=== PATIENT | female | born 1970 | race Caucasian/White ===

== ENCOUNTER → 2016-08-07 | Outpatient (REF) | payer BC ==
[~2016-08-07] MED LIST: NORT25CA2 OR
[2016-08-07 17:15] LABS: MEAN CORPUSCULAR HEMOGLOBIN 30.2 pg (27.0-33.0); MEAN CORPUSCULAR HGB CONC 33.4 g/dl (32.0-36.5); MEAN CORPUSCULAR VOLUME 90.5 fl (80.0-96.0); RED CELL DISTRIBUTION WIDTH 12.2 % (11.5-14.5); WHITE BLOOD COUNT 5.5 K/mm3 (4.0-10.0)
[2016-08-07 17:26] LABS: ALBUMIN 3.8 GM/DL (3.2-5.2); ALBUMIN/GLOBULIN RATIO 1.09 (1.00-1.93); ALKALINE PHOSPHATASE 83 U/L (45-117); ALT/SGPT 31 U/L (12-78); ANION GAP 7 MEQ/L (8-16); AST/SGOT 13 U/L (15-37); BILIRUBIN,TOTAL 0.2 MG/DL (0.2-1.0); BLOOD UREA NITROGEN 14 MG/DL (7-18); CALCIUM LEVEL 8.7 MG/DL (8.5-10.1); CARBON DIOXIDE LEVEL 27 MEQ/L (21-32); CHLORIDE LEVEL 105 MEQ/L (98-107); CHOLESTEROL LEVEL 204 MG/DL (<200); CREATININE FOR GFR 0.74 MG/DL (0.55-1.02); FREE T4 1.07 NG/DL (0.76-1.46); GLOMERULAR FILTRATION RATE > 60.0 (>58); GLUCOSE, FASTING 80 MG/DL (70-105); POTASSIUM SERUM 4.5 MEQ/L (3.5-5.1); SODIUM LEVEL 139 MEQ/L (136-145); TOTAL PROTEIN 7.3 GM/DL (6.4-8.2); TRIGLYCERIDES LEVEL 156 MG/DL (<150)
== END ==
LOC: M SFHCLERA 14:23
PROVIDERS: ATTEND Family Medicine
DX: H35.89 Other specified retinal disorders (principal)

== ENCOUNTER → 2016-08-17 | Outpatient (CLI) | payer BC ==
--- NOTE | 2016-08-18 04:33 | REP ---
Clinical: Visual disturbances and hyperlipidemia. Technique: Choi scale and color Doppler evaluation using linear high frequency transducer Findings: Two-dimensional choi scale and color images demonstrate minimal soft plaque material in the distal common carotid arteries/bulbs with normal arterial lumen and laminar flow. Color Doppler interrogation demonstrates normal arterial wave patterns and velocities with no significant spectral broadening. Normal flow direction is appreciated in the bilateral vertebral arteries. RIGHT (cm/s) LEFT (cm/s) ICA peak systolic velocity 58.8 67.0 ICA diastolic velocity 28.1 35.7 ECA peak systolic velocity 64.2 74.0 CCA peak systolic velocity 76.6 87.6 ICA/CCA ratio 0.77 0.76 Impression: No hemodynamically significant areas of narrowing or stenosis appreciated. Based on set standards narrowing falls within the less than 50% range. Signed by Abram Salguero MD 08/18/2016 04:25 A
--- NOTE | 2016-08-18 08:54 | REP ---
MRI BRAIN WITHOUT AND WITH CONTRAST: HISTORY: Retinal lipid deposits. CONTRAST: ProHance 19 mL. There are no areas of abnormal signal intensity in the brain. There is no intraparenchymal hemorrhage, infarct, mass or midline shift. There is no abnormal enhancement. The ventricular system is normal in appearance. There is no extracerebral collection. The sinuses are clear. IMPRESSION: There is no intracranial lesion. Signed by Darrius Andersen MD 08/18/2016 08:59 A
== END ==
LOC: M RAD 15:48
PROVIDERS: ATTEND Family Medicine
DX: H35.89 Other specified retinal disorders (principal)
CPT/HCPCS: 70553; 93880; A9576

== ENCOUNTER → 2017-07-16 | Outpatient (REF) | payer OTHER | LOC: M SFHCLERA 18:56 | DX: J02.9 Acute pharyngitis, unspecified (principal) ==

== ENCOUNTER 2017-11-29 05:58 | Emergency (ER) | payer OTHER ==
[2017-11-29] MEDS: NS 1,000 ML IV (07:07)
[2017-11-29] MEDS: MORPHINE 4 MG/ML 1ML VIAL/SYRINGE (J2270) IV ×2 (07:08→08:09)
[2017-11-29] MEDS: ONDANSETRON 4MG/2ML VIAL (J2405) IV (07:08)
[2017-11-29 08:02] LABS: CONTROL LINE HCG INT CTR LINE PRESENT; HCG, SERUM QUALITATIVE NEGATIVE (NEGATIVE)
[2017-11-29 08:03] LABS: AMORPHOUS SEDIMENT RFX LARGE (NEGATIVE); KETONE, URINE AUTO RFX NEGATIVE (NEGATIVE); MUCUS, URINE RFX LARGE (NEGATIVE); RBC, URINE AUTO RFX 146 /HPF (0-3); SPECIFIC GRAVITY UR AUTO RFX 1.015 (1.002-1.035); SQUAM EPITHELIAL CELL UR AURFX 6 /HPF (0-6)
[2017-11-29 08:04] LABS: LEUKOCYTE ESTERASE UR AUTO RFX 3+ (NEGATIVE); NITRITE, URINE AUTO RFX POSITIVE (NEGATIVE); WBC, URINE AUTO RFX TNTC /HPF (0-3)
[2017-11-29] MEDS: PHENAZOPYRIDINE 100 MG TAB PO (08:11)
[2017-11-29 08:28] LABS: ANION GAP 7 MEQ/L (8-16); BLOOD UREA NITROGEN 11 MG/DL (7-18); CALCIUM LEVEL 8.3 MG/DL (8.5-10.1); CARBON DIOXIDE LEVEL 26 MEQ/L (21-32); CHLORIDE LEVEL 111 MEQ/L (98-107); CREATININE FOR GFR 0.75 MG/DL (0.55-1.30); GLOMERULAR FILTRATION RATE > 60.0 (>58); GLUCOSE, FASTING 109 MG/DL (70-100); POTASSIUM SERUM 3.6 MEQ/L (3.5-5.1); SODIUM LEVEL 144 MEQ/L (136-145)
[2017-11-29] MEDS: cefTRIAXone SOD 1 GM in D5W MINI-BAG PLUS 50 ML IV (08:49)
[2017-11-29 09:09] LABS: BASO % 0.3 % (0.0-1.0); EOS # 0.1 10^3/uL (0.0-0.50); EOS % 0.5 % (0.0-3.0); HEMATOCRIT 40.9 % (36.0-47.0); HEMOGLOBIN 13.5 g/dl (12.0-15.5); IMMATURE GRANULOCYTE % 0.5 % (0-3.0); LYMPH # 0.9 10^3/uL (1.5-4.5); LYMPH % 7.8 % (24.0-44.0); MEAN CORPUSCULAR HEMOGLOBIN 30.1 pg (27.0-33.0); MEAN CORPUSCULAR VOLUME 91.1 fl (80.0-96.0); MONO # 0.8 10^3/uL (0.0-0.8); MONO % 6.5 % (0.0-5.0); NEUTROPHILS % 84.4 % (36.0-66.0); PLATELET COUNT, AUTOMATED 214 10^3/uL (150-450); RED BLOOD COUNT 4.49 10^6/uL (4.00-5.40); RED CELL DISTRIBUTION WIDTH 13.2 % (11.5-14.5); WHITE BLOOD COUNT 11.9 10^3/uL (4.0-10.0)
[2017-11-29 10:18] LABS: CHLAMYDIA DNA AMPLIFICATION NEGATIVE (NEGATIVE); GC DNA AMPLIFICATION NEGATIVE (NEGATIVE)
== END 2017-11-29 10:58 | disposition home or self-care (01) ==
LOC: M ED 05:58
DX: N10 Acute pyelonephritis (principal); D64.9 Anemia, unspecified; R51 Headache; F17.200 Nicotine dependence, unspecified, uncomplicated; Z88.5 Allergy status to narcotic agent; Z79.899 Other long term (current) drug therapy
CPT/HCPCS: J2270

== ENCOUNTER 2018-03-15 18:13 | Emergency (ER) | payer MEDICAID, OTHER, SELFPAY ==
[2018-03-15 18:47] LABS: BASO % 0.5 % (0.0-1.0); EOS # 0.1 10^3/uL (0.0-0.50); EOS % 1.4 % (0.0-3.0); HEMATOCRIT 46.6 % (36.0-47.0); HEMOGLOBIN 15.2 g/dl (12.0-15.5); IMMATURE GRANULOCYTE % 0.3 % (0-3.0); LYMPH # 1.6 10^3/uL (1.5-4.5); LYMPH % 21.2 % (24.0-44.0); MEAN CORPUSCULAR HEMOGLOBIN 30.3 pg (27.0-33.0); MEAN CORPUSCULAR HGB CONC 32.6 g/dl (32.0-36.5); MEAN CORPUSCULAR VOLUME 92.8 fl (80.0-96.0); MONO # 0.6 10^3/uL (0.0-0.8); MONO % 8.2 % (0.0-5.0); NEUTROPHILS % 68.4 % (36.0-66.0); PLATELET COUNT, AUTOMATED 196 10^3/uL (150-450); RED BLOOD COUNT 5.02 10^6/uL (4.00-5.40); RED CELL DISTRIBUTION WIDTH 12.5 % (11.5-14.5); WHITE BLOOD COUNT 7.4 10^3/uL (4.0-10.0)
[2018-03-15 18:58] LABS: INR 0.98; PROTHROMBIN TIME 13.1 SECONDS (12.1-14.4)
[2018-03-15 19:17] LABS: ALBUMIN/GLOBULIN RATIO 1.18 (1.00-1.93); ALKALINE PHOSPHATASE 75 U/L (45-117); ALT/SGPT 29 U/L (12-78); ANION GAP 10 MEQ/L (8-16); AST/SGOT 11 U/L (7-37); BILIRUBIN,DIRECT 0.1 MG/DL (0.0-0.2); BILIRUBIN,TOTAL 0.5 MG/DL (0.2-1.0); BLOOD UREA NITROGEN 11 MG/DL (7-18); CALCIUM LEVEL 8.8 MG/DL (8.5-10.1); CARBON DIOXIDE LEVEL 26 MEQ/L (21-32); CHLORIDE LEVEL 106 MEQ/L (98-107); CK-MB VALUE MASS < 1.0 NG/ML (<3.6); CPK CREATINE PHOSPHOKINASE 45 U/L (26-192); CREATININE FOR GFR 0.88 MG/DL (0.55-1.30); GLOMERULAR FILTRATION RATE > 60.0 (>58); GLUCOSE, FASTING 89 MG/DL (70-100); LIPASE 121 U/L (73-393); MB/CK RELATIVE INDEX 2.22 (< OR =4); SODIUM LEVEL 142 MEQ/L (136-145); TOTAL PROTEIN 7.4 GM/DL (6.4-8.2); TROPONIN I < 0.02 NG/ML (< 0.10)
[2018-03-15 19:55] LABS: MAGNESIUM LEVEL 2.3 MG/DL (1.8-2.4)
[2018-03-15] MEDS: ONDANSETRON 4 MG ORAL DISINTEGRATING TAB (Q0162 PER 1MG) PO (20:22)
[2018-03-15] MEDS ORDERED: ISOVUE-370 76% 100ML VIAL (Q9967) As Ordered (22:08)
[2018-03-15 22:50] LABS: CK-MB VALUE MASS < 1.0 NG/ML (<3.6); CPK CREATINE PHOSPHOKINASE 37 U/L (26-192); TROPONIN I < 0.02 NG/ML (< 0.10)
== END 2018-03-16 02:09 | disposition home or self-care (01) ==
LOC: M ED 03-16 02:09
DX: I49.3 Ventricular premature depolarization (principal); Z73.3 Stress, not elsewhere classified; F33.9 Major depressive disorder, recurrent, unspecified; F41.9 Anxiety disorder, unspecified; Z88.8 Allergy status to other drugs, medicaments and biological substances
CPT/HCPCS: Q9967

== ENCOUNTER → 2018-03-15 | Outpatient (REF) | payer OTHER ==
[2018-03-15 21:57] LABS: CHLAMYDIA DNA AMPLIFICATION NEGATIVE (NEGATIVE); GC DNA AMPLIFICATION NEGATIVE (NEGATIVE)
== END ==
LOC: M SFHCLERA 16:28
DX: R30.0 Dysuria (principal)
CPT/HCPCS: 87086

== ENCOUNTER 2018-11-20 17:59 | Emergency (ER) | payer MEDICAID, OTHER ==
[~2018-11-20] VITALS: Ht 165.1 cm; Wt 82.1 kg
[~2018-11-20 17:59] MED LIST changes: +CIPR-249 PO; +PERC5TAB12 PO; +PYRI1TAB5 PO
[2018-11-20] MEDS ORDERED: SERT-155 PO (18:11)
[2018-11-20] MEDS ORDERED: VALA500T5 PO (18:11)
[2018-11-20 18:37] LABS: BASO # 0.1 10^3/uL (0.0-0.2); BASO % 0.9 % (0.0-1.0); EOS # 0.1 10^3/uL (0.0-0.50); HEMATOCRIT 43.2 % (36.0-47.0); HEMOGLOBIN 13.9 g/dl (12.0-15.5); LYMPH # 1.7 10^3/uL (1.5-4.5); LYMPH % 25.3 % (24.0-44.0); MEAN CORPUSCULAR HEMOGLOBIN 30.4 pg (27.0-33.0); MEAN CORPUSCULAR HGB CONC 32.2 g/dl (32.0-36.5); MEAN CORPUSCULAR VOLUME 94.5 fl (80.0-96.0); MONO # 0.6 10^3/uL (0.0-0.8); MONO % 9.2 % (0.0-5.0); NEUTROPHILS # 4.1 10^3/uL (1.8-7.7); NEUTROPHILS % 62.3 % (36.0-66.0); PLATELET COUNT, AUTOMATED 185 10^3/uL (150-450); RED BLOOD COUNT 4.57 10^6/uL (4.00-5.40); WHITE BLOOD COUNT 6.5 10^3/uL (4.0-10.0)
[2018-11-20 19:17] LABS: BLOOD UREA NITROGEN 16 MG/DL (7-18); CALCIUM LEVEL 9.1 MG/DL (8.5-10.1); CARBON DIOXIDE LEVEL 30 MEQ/L (21-32); CHLORIDE LEVEL 107 MEQ/L (98-107); CK-MB VALUE MASS < 1.0 NG/ML (<3.6); CPK CREATINE PHOSPHOKINASE 87 U/L (26-192); CREATININE FOR GFR 0.88 MG/DL (0.55-1.30); GLOMERULAR FILTRATION RATE > 60.0 (>58); GLUCOSE, FASTING 90 MG/DL (70-100); MB/CK RELATIVE INDEX 1.15 (< OR =4); POTASSIUM SERUM 4.2 MEQ/L (3.5-5.1); SODIUM LEVEL 142 MEQ/L (136-145); TROPONIN I < 0.02 NG/ML (< 0.10)
--- NOTE | 2018-11-20 19:43 | REP ---
REASON: Chest pain. COMPARISON: 03/15/2018 The technique utilized in obtaining the radiograph has magnified the cardiac silhouette and accentuated the interstitial markings. The superior mediastinal structures are midline. The cardiac silhouette is unremarkable in size, shape, and position. The diaphragmatic surfaces of the lungs are regular, and the costophrenic angles are clear. The pulmonary golden are clear. The imaged osseous structures are intact. IMPRESSION: There is no acute cardiopulmonary disease. Electronically Signed by Simon Fontenot DO 11/21/2018 11:08 A
[2018-11-20] MEDS ORDERED: MORPHINE 4 MG/ML 1ML VIAL/SYRINGE (J2270) IV ONE (19:45)
[2018-11-20 20:42] LABS: ALBUMIN 3.9 GM/DL (3.2-5.2); ALT/SGPT 26 U/L (12-78); BILIRUBIN,DIRECT < 0.1 MG/DL (0.0-0.2); BILIRUBIN,TOTAL 0.1 MG/DL (0.2-1.0); LIPASE 115 U/L (73-393); MAGNESIUM LEVEL 2.1 MG/DL (1.8-2.4); PHOSPHORUS LEVEL 3.7 MG/DL (2.5-4.9); TOTAL PROTEIN 7.3 GM/DL (6.4-8.2)
--- NOTE | 2018-11-20 21:23 | REPVR ---
EXAM: US Abdomen Limited, Right Upper Quadrant EXAM DATE/TIME: 11/20/2018 8:58 PM CLINICAL HISTORY: 48 years old, female; Abdominal pain; Epigastric; Additional info: Ruq pain eval for cholecystitis TECHNIQUE: Imaging protocol: Real-time ultrasound of the abdomen with image documentation. Examination was focused on the right upper quadrant. COMPARISON: RENAL US 11/29/2017 8:56 AM FINDINGS: Liver: Unremarkable as visualized. No masses identified. Gallbladder: There are multiple stones within the gallbladder. No gallbladder wall thickening or pericholecystic fluid is identified. Common bile duct: The common bile duct has a normal caliber, measuring 3.1 mm. Pancreas: The pancreas is not adequately visualized secondary to motion and bowel gas. Right kidney: Normal size, measuring 11.5 cm in length. No mass. No hydronephrosis. IMPRESSION: Cholelithiasis. Electronically signed by: Magdaleno Cevallos On 11/20/2018 21:22:41 PM
--- NOTE | 2018-11-20 21:51 | ECGEPIP ---
[facility] - ED Test Date: 2018-11-20 Pat Name: COLT BARRAGAN Department: Room: - Gender: Female Wrapper Counter: SARAH : 1970 Requested By: Fernando Lang Order Number: [id number] Reading MD: Fernando Lewis Measurements Intervals [place] Rate: 80 P: 230 SD: 150 QRS: 55 QRSD: 80 T: 22 QT: 386 QTc: 448 Interpretive Statements ECTOPIC ATRIAL RHYTHM RHYTHM CHANGE COMPARED TO 03/15/18 Electronically Signed on 11-20-2018 21:51:27 EDT by Fernando Lewis
[2018-11-20 22:02] VITALS: BP 136/69
[2018-11-20] MEDS ORDERED: PERC5TAB12 PO (22:14)
[2018-11-20] MEDS ORDERED: OXYCODONE/APAP 5MG/325MG(BULK FOR ED) 1 TABLET PO ONE (22:15)
[2018-11-20] MEDS ORDERED: ZOFR4TAB16 PO (22:15)
[2018-12-02] MEDS ORDERED: SUCR1TAB56 PO (09:55)
[2018-12-02] MEDS ORDERED: RANI300C PO (09:55)
== END 2018-11-20 22:32 | disposition home or self-care (01) ==
LOC: M ED 17:59
DX: K80.70 Calculus of gallbladder and bile duct without cholecystitis without obstruction (principal); R00.2 Palpitations; R11.0 Nausea; F32.9 Major depressive disorder, single episode, unspecified; F17.200 Nicotine dependence, unspecified, uncomplicated; Z88.5 Allergy status to narcotic agent; Z79.899 Other long term (current) drug therapy
CPT/HCPCS: 36415; 71045; 76705; 80048; 80076; 82550; 82553; 83690; 83735; 84100; 84439; 84443; 85025; 93005; 93041; 94760; 96374; 99285; J2270

== ENCOUNTER → 2018-11-25 | Outpatient (REF) | payer OTHER ==
[~2018-11-25] MED LIST changes: +RANI300C PO; +SERT-155 PO; +SUCR1TAB56 PO; +VALA500T5 PO; +ZOFR4TAB16 PO
[2018-11-25 20:25] LABS: CHOLESTEROL RISK RATIO 2.648 (<5)
[2018-11-25 20:42] LABS: HEMOGLOBIN A1c 5.7 %
== END ==
LOC: M SFHCLERA 17:05
PROVIDERS: ATTEND Family Medicine
DX: E66.9 Obesity, unspecified (principal); Z68.30 Body mass index [BMI] 30.0-30.9, adult

== ENCOUNTER 2018-12-05 11:22 | Day surgery (SDC) | payer OTHER ==
[~2018-12-05] VITALS: Ht 165.1 cm; Wt 79.7 kg
[~2018-12-05 11:22] MED LIST changes: +NS 1,000 ML IV ONE
[2018-12-05] MEDS ORDERED: fentaNYL 100 MCG/2 ML INJECTION (J3010) As Ordered ONE (13:30)
[2018-12-05] MEDS ORDERED: PROPOFOL 200 MG/20 ML VIAL As Ordered ONE ×2 (13:47→13:48)
[2018-12-05] MEDS ORDERED: LIDOCAINE 2% INJ 100 MG/5 ML SDV (FOR ANES.) As Ordered ONE (13:48)
--- NOTE | 2018-12-05 13:58 | ROOR ---
Patient Name: Aleena Aguillon Procedure Date: 12/05/2018 1:32 PM Date of : 1970 Age: 48 Room: [facility] Gender: Female Note Status: Finalized Procedure: Upper GI endoscopy Indications: Suspected esophageal reflux Providers: Cleveland Inman Jr, MD Referring MD: Kody BOND MD Requesting Provider: Medicines: Propofol per Anesthesia Complications: No immediate complications. Procedure: Pre-Anesthesia Assessment: - Prior to the procedure, a History and Physical was performed, and patient medications and allergies were reviewed. The patient is competent. The risks and benefits of the procedure and the sedation options and risks were discussed with the patient. All questions were answered and informed consent was obtained. Patient identification and proposed procedure were verified by the physician and the nurse in the pre-procedure area and in the procedure room. Mental Status Examination: alert and oriented. Airway Examination: normal oropharyngeal airway and neck mobility. Respiratory Examination: clear to auscultation. CV Examination: normal. ASA Grade Assessment: II - A patient with mild systemic disease. After reviewing the risks and benefits, the patient was deemed in satisfactory condition to undergo the procedure. The anesthesia plan was to use moderate sedation / analgesia (conscious sedation). Immediately prior to administration of medications, the patient was re-assessed for adequacy to receive sedatives. The heart rate, respiratory rate, oxygen saturations, blood pressure, adequacy of pulmonary ventilation, and response to care were monitored throughout the procedure. The physical status of the patient was re-assessed after the procedure. The Endoscope was introduced through the mouth, and advanced to the second part of duodenum. The upper GI endoscopy was accomplished without difficulty. The patient tolerated the procedure well. Findings: The upper third of the esophagus, middle third of the esophagus and lower third of the esophagus were normal. The cardia, gastric fundus, gastric body, gastric antrum, prepyloric region of the stomach and pylorus were normal. The duodenal bulb, first portion of the duodenum and second portion of the duodenum were normal. Impression: - Normal upper third of esophagus, middle third of esophagus and lower third of esophagus. - Normal cardia, gastric fundus, gastric body, antrum, prepyloric region of the stomach and pylorus. - Normal duodenal bulb, first portion of the duodenum and second portion of the duodenum. - No specimens collected. Recommendation: - Discharge patient to home (ambulatory). - Return to my office as previously scheduled. Cleveland Inman MD Cleveland Inman Jr, MD 12/05/2018 1:58:27 PM Electronically signed by Cleveland Inman Jr, MD Number of Addenda: 0 Note Initiated On: 12/05/2018 1:32 PM Estimated Blood Loss: Estimated blood loss: none.
--- NOTE | 2018-12-05 14:00 | ROOR ---
Patient Name: Aleena Aguillon Procedure Date: 12/05/2018 1:34 PM Date of : 1970 Age: 48 Room: [facility] Gender: Female Note Status: Finalized Procedure: Colonoscopy Indications: Screening in patient at increased risk: Family history of 1st-degree relative with colorectal cancer Providers: Cleveland Inman Jr, MD Referring MD: Kody BOND MD Requesting Provider: Medicines: Propofol per Anesthesia Complications: No immediate complications. Procedure: Pre-Anesthesia Assessment: - Prior to the procedure, a History and Physical was performed, and patient medications and allergies were reviewed. The patient is competent. The risks and benefits of the procedure and the sedation options and risks were discussed with the patient. All questions were answered and informed consent was obtained. Patient identification and proposed procedure were verified by the physician and the nurse in the pre-procedure area and in the procedure room. Mental Status Examination: alert and oriented. Airway Examination: normal oropharyngeal airway and neck mobility. Respiratory Examination: clear to auscultation. CV Examination: normal. ASA Grade Assessment: II - A patient with mild systemic disease. After reviewing the risks and benefits, the patient was deemed in satisfactory condition to undergo the procedure. The anesthesia plan was to use moderate sedation / analgesia (conscious sedation). Immediately prior to administration of medications, the patient was re-assessed for adequacy to receive sedatives. The heart rate, respiratory rate, oxygen saturations, blood pressure, adequacy of pulmonary ventilation, and response to care were monitored throughout the procedure. The physical status of the patient was re-assessed after the procedure. The Colonoscope was introduced through the anus and advanced to the cecum, identified by appendiceal orifice and ileocecal valve. The colonoscopy was performed without difficulty. The patient tolerated the procedure well. The quality of the bowel preparation was adequate. Findings: The rectum, recto-sigmoid colon, sigmoid colon, descending colon, transverse colon, ascending colon, cecum, appendiceal orifice and ileocecal valve appeared normal. Impression: - The rectum, recto-sigmoid colon, sigmoid colon, descending colon, transverse colon, ascending colon, cecum, appendiceal orifice and ileocecal valve are normal. - No specimens collected. Recommendation: - Discharge patient to home (ambulatory). - Repeat colonoscopy in 5 years for screening purposes. Cleveland Inman MD Cleveland Inman Jr, MD 12/05/2018 1:59:54 PM Electronically signed by Cleveland Inman Jr, MD Number of Addenda: 0 Note Initiated On: 12/05/2018 1:34 PM Estimated Blood Loss: Estimated blood loss: none.
[2018-12-05 14:36] VITALS: BP 126/83
== END 2018-12-05 14:38 | disposition home or self-care (01) ==
LOC: M OPP 11:22
PROVIDERS: ATTEND Surgery
DX: Z12.11 Encounter for screening for malignant neoplasm of colon (principal); Z80.0 Family history of malignant neoplasm of digestive organs; K21.9 Gastro-esophageal reflux disease without esophagitis; Z79.899 Other long term (current) drug therapy; Z88.5 Allergy status to narcotic agent; Z87.891 Personal history of nicotine dependence
CPT/HCPCS: 43235; 45378; J3010

== ENCOUNTER 2019-01-04 18:54 | Emergency (ER) | payer OTHER ==
[~2019-01-04] VITALS: Ht 165.1 cm; Wt 80.9 kg
[~2019-01-04 18:54] MED LIST changes: -NS 1,000 ML IV ONE
[2019-01-04 19:30] LABS: HEMOGLOBIN 13.3 g/dl (12.0-15.5); MEAN CORPUSCULAR VOLUME 92.6 fl (80.0-96.0); RED BLOOD COUNT 4.43 10^6/uL (4.00-5.40); WHITE BLOOD COUNT 10.3 10^3/uL (4.0-10.0)
[2019-01-04 19:31] LABS: BASO % 0.4 % (0.0-1.0); EOS # 0.1 10^3/uL (0.0-0.5); EOS % 0.7 % (0.0-3.0); LYMPH # 1.5 10^3/uL (1.5-5.0); LYMPH % 14.1 % (24.0-44.0); MEAN CORPUSCULAR HGB CONC 32.4 g/dl (32.0-36.5); MONO % 9.4 % (0.0-5.0); NEUTROPHILS # 7.8 10^3/uL (1.5-8.5); NEUTROPHILS % 75.1 % (36.0-66.0); PLATELET COUNT, AUTOMATED 165 10^3/uL (150-450)
--- NOTE | 2019-01-04 19:44 | REPVR ---
PROCEDURE INFORMATION: Exam: US Pelvis Limited, Transabdominal Exam date and time: 01/04/2019 7:39 PM Clinical history: 48 years old, female; Pain; Other: RT glute; Additional info: Right gluteal cellulitis vs abscess TECHNIQUE: Imaging protocol: Real-time transabdominal pelvic ultrasound with image documentation. Limited exam. COMPARISON: CT ABD PELVIS W/O CONTRAST 05/19/2015 3:37 PM FINDINGS: Free fluid: Imaging in the right gluteal region demonstrates marked subcutaneous edema. There is a complex partially fluid filled mass measuring 1 x 0.8 x 1 cm without significant hypervascularity which may represent fat necrosis or an abscess. IMPRESSION: There is a complex partially fluid filled mass in the right gluteal region in the area of clinical concern without significant hypervascularity which may represent fat necrosis or an abscess. Electronically signed by: Shahzad Mancuso On 01/04/2019 19:43:58 PM
[2019-01-04] MEDS ORDERED: LIDOCAINE 1% MDV 20ML VIAL SC ONE (20:00)
[2019-01-04] MEDS ORDERED: ACETAMINOPHEN 325 MG TAB PO ONE (20:15)
[2019-01-04] MEDS ORDERED: BACTRIM 160MG/800MG DS TAB PO ONE (20:15)
[2019-01-04] MEDS ORDERED: BACT800T5 PO (20:17)
[2019-01-04 20:28] VITALS: BP 164/99
== END 2019-01-04 20:36 | disposition home or self-care (01) ==
LOC: M ED 18:54
DX: L03.317 Cellulitis of buttock (principal); Z79.899 Other long term (current) drug therapy; Z88.8 Allergy status to other drugs, medicaments and biological substances

== ENCOUNTER 2019-01-06 19:55 | Emergency (ER) | payer OTHER ==
[~2019-01-06] VITALS: Ht 165.1 cm; Wt 79.5 kg
[~2019-01-06 19:55] MED LIST changes: +BACT800T5 PO
[2019-01-06 19:58] VITALS: BP 137/84
[2019-01-07] MEDS ORDERED: NON-325T5 PO (06:28)
== END 2019-01-06 20:15 | disposition left against medical advice (07) ==
LOC: M ED 19:55
DX: Z53.29 Procedure and treatment not carried out because of patient's decision for other reasons (principal)

== ENCOUNTER 2019-01-07 05:59 | Day surgery (SDC) | payer OTHER ==
[~2019-01-07] VITALS: Ht 165.1 cm; Wt 79.8 kg
[2019-01-07] MEDS ORDERED: LIDOCAINE 1% MDV 20ML VIAL SQ PRN (06:00)
[2019-01-07] MEDS ORDERED: NON-325T5 PO (06:28)
[2019-01-07] MEDS ORDERED: ceFAZolin SOD 1 GM in D5W MINI-BAG PLUS 50 ML IV ONE (06:30)
[2019-01-07] MEDS ORDERED: SUGAMMADEX SODIUM 500 MG/5 ML VIAL (BRIDION) As Ordered ONE (06:55)
[2019-01-07] MEDS ORDERED: PROPOFOL 200 MG/20 ML VIAL As Ordered ONE (06:55)
[2019-01-07] MEDS ORDERED: LIDOCAINE 2% INJ 100 MG/5 ML SDV (FOR ANES.) As Ordered ONE (06:55)
[2019-01-07] MEDS ORDERED: ROCURONIUM BROMIDE 50 MG/5 ML VIAL As Ordered ONE (06:55)
[2019-01-07] MEDS ORDERED: ACETAMINOPHEN 1000MG 100ML IV BTL (OFIRMEV) (J0131 PER 10MG) As Ordered ONE (06:56)
[2019-01-07] MEDS ORDERED: dexameTHASONE 4 MG/ML 1ML VIAL (J1100) As Ordered ONE (06:56)
[2019-01-07] MEDS ORDERED: fentaNYL 250 MCG/5 ML INJECTION (J3010) As Ordered ONE (06:56)
[2019-01-07] MEDS ORDERED: MIDAZOLAM INJ 2 MG/2 ML VIAL (J2250) As Ordered ONE (06:56)
[2019-01-07] MEDS ORDERED: KETAMINE HCL 200 MG/20 ML VIAL As Ordered ONE (06:56)
[2019-01-07] MEDS ORDERED: KETOROLAC 60 MG/2 ML VIAL (J1885) As Ordered ONE (06:56)
[2019-01-07] MEDS ORDERED: ONDANSETRON 4MG/2ML VIAL (J2405) As Ordered ONE (06:56)
[2019-01-07] MEDS ORDERED: LR 1,000 ML IV ONE (07:00)
[2019-01-07] MEDS ORDERED: BUPIVACAINE/EPIN 0.25% 30 ML VIAL As Ordered ONE ×2 (07:08→07:47)
[2019-01-07] MEDS ORDERED: CONRAY-60 60% 50ML VIAL (Q9961) As Ordered ONE (07:08)
[2019-01-07] MEDS ORDERED: SUCCINYLCHOLINE 100 MG/5 ML SYRINGE (J0330) As Ordered ONE (07:51)
[2019-01-07] MEDS ORDERED: KETOROLAC 30 MG/ML VIAL (J1885) IV SCH (09:15)
[2019-01-07] MEDS: fentaNYL 100 MCG/2 ML INJECTION (J3010) IV PRN ×4 (09:15→09:32)
[2019-01-07] MEDS ORDERED: ONDANSETRON 4MG/2ML VIAL (J2405) IV PRN ×2 (10:00)
[2019-01-07] MEDS ORDERED: NORCO, ANEXSIA 5/325MG TABLET (HYDROcodone/ACETAMINOPHEN) PO PRN (10:00)
[2019-01-07] MEDS ORDERED: LR 1,000 ML IV SCH (10:00)
[2019-01-07] MEDS ORDERED: oxyCODONE 5MG TAB PO PRN (10:00)
[2019-01-07] MEDS ORDERED: MORPHINE 10 MG/ML 1ML VIAL (J2270) IV PRN (10:00)
[2019-01-07] MEDS ORDERED: METOCLOPRAMIDE INJ 10MG/2ML VIAL (J2765) As Ordered ONE (11:15)
[2019-01-07] MEDS ORDERED: METOCLOPRAMIDE INJ 10MG/2ML VIAL (J2765) IV ONE (11:30)
[2019-01-07 12:30] VITALS: BP 118/61
--- NOTE | 2019-01-10 10:59 | RO ---
DATE OF PROCEDURE: 01/07/2019 PREOPERATIVE DIAGNOSIS: Symptomatic gallstones. POSTOPERATIVE DIAGNOSIS: Symptomatic gallstones. PROCEDURE: Laparoscopic cholecystectomy. SURGEON: Cleveland Inman MD [employer] OFFICER: ANESTHESIA: General endotracheal anesthesia. ESTIMATED BLOOD LOSS (EBL): Minimal. FLUIDS: Crystalloid. BRIEF PROCEDURE SUMMARY: The patient was brought to the operating room, was given general anesthesia. After adequate anesthesia and preoperative antibiotics were given, the patient was prepped and draped in the usual sterile fashion. Next, a supraumbilical incision was made with skin knife. Blunt dissection was carried down to fascia. Fascia was entered using Veress needle, insufflated to 15 mm pressure, then dilating 10 mm trocar was placed under direct visualization. Epigastric and two lateral trocars were placed. The gallbladder was grasped, retracted superiorly. Then, the neck of the gallbladder was cleared of surrounding peritoneum using the hook cautery all across the anterior aspect of the gallbladder as well as the cystic artery area. Once mobilizing the peritoneum laterally, I was able to retract the gallbladder a little bit more laterally and then open up the space on the medial aspect to better visualize the artery as well as the window behind the neck of the gallbladder. This better showed the cystic duct area as well as the neck of the gallbladder and the cystic artery, and then further dissection up to the cystic plate was performed on the lateral aspect and once this was all nice and clear the cystic artery was clipped proximally and distally and transected. Then, the window was even enlarged a little bit larger and then the cystic artery was identified, clipped proximally and distally and transected. The gallbladder then was taken from the gallbladder bed, placed in an Endo Catch bag, brought out through the umbilicus. The right upper quadrant was copiously irrigated until clear. All the trocars were removed under direct visualization. #0 Vicryl was used close the fascia at the umbilicus and #4-0 Vicryl was used close all incisions. Steri-Strips and dry sterile dressing was applied. The patient was awakened, extubated, brought to recovery room awake, alert and hemodynamic stable. Sponge and needle counts correct times two.
== END 2019-01-07 12:38 | disposition home or self-care (01) ==
LOC: M SDC 05:59
PROVIDERS: ATTEND Surgery
DX: K80.10 Calculus of gallbladder with chronic cholecystitis without obstruction (principal); F41.9 Anxiety disorder, unspecified; F32.9 Major depressive disorder, single episode, unspecified; Z79.899 Other long term (current) drug therapy; Z88.8 Allergy status to other drugs, medicaments and biological substances
CPT/HCPCS: 47562; 88304; J0131; J0330; J0690; J1100; J2250; J2405; J2765; J3010

== ENCOUNTER → 2019-07-09 | Outpatient (REF) | payer BC ==
[~2019-07-09] MED LIST changes: +NON-325T5 PO; -SERT-155 PO; +SERT50TA29 PO
== END ==
LOC: M LAB REF 12:13
PROVIDERS: ATTEND Physician Assistant
DX: J11.1 Influenza due to unidentified influenza virus with other respiratory manifestations (principal)

== ENCOUNTER → 2019-08-09 | Outpatient (CLI) | payer BC ==
--- NOTE | 2019-08-09 12:43 | REP ---
RIGHT WRIST, FOUR VIEWS: There is no evidence of an acute fracture, dislocation or intrinsic bone disease. IMPRESSION: No fracture or dislocation. Electronically Signed by Kody Choi MD 08/09/2019 04:19 P
--- NOTE | 2019-08-09 12:43 | REP ---
CERVICAL SPINE SERIES: Seven views of the cervical spine performed. No fracture or dislocation is seen. Vertebral bodies are normal in height and are well aligned with normal cervical lordosis. There is no vertebral soft tissue swelling. There is mild spurring and disc space narrowing with mild subchondral sclerosis at C6-7. No radiographic evidence of significant neural foraminal narrowing. IMPRESSION: Mild degenerative changes C6-7. No radiographic evidence of fracture or dislocation. Electronically Signed by Kody Choi MD 08/09/2019 04:20 P
== END ==
LOC: M RAD 10:21
PROVIDERS: ATTEND Physician Assistant
DX: M50.323 Other cervical disc degeneration at C6-C7 level (principal); S69.91XA Unspecified injury of right wrist, hand and finger(s), initial encounter; W19.XXXA Unspecified fall, initial encounter; Y92.9 Unspecified place or not applicable

== ENCOUNTER → 2019-12-31 | Outpatient (CLI) | payer BC ==
--- NOTE | 2020-01-09 16:54 | REP ---
DIGITAL DIAGNOSTIC BILATERAL MAMMOGRAM WITH CAD, 3D TOMOGRAPHY, AND FOCUSED OR TARGETED BILATERAL BREAST SONOGRAPHY HISTORY: Bilateral palpable lumps, one on each side. COMPARISON: Mammography August 18, 2016, and June 04, 2015. FINDINGS: A skin marker was affixed to the skin of the right breast at the site of the palpable lump. This lump projects superiorly at approximately 12 oclock position. Routine views are augmented by magnified focal spot compression views. A skin marker was affixed to the site of the palpable lump in the left breast which projects in the superior medial quadrant anteriorly. Breast parenchyma is predominantly fat replaced. The Volpara volumetric breast parenchymal density pattern is A. No dominant density is seen mammographically at the site of either palpable lump or elsewhere on either side. There are normal appearing lymph nodes in each axilla. No architectural distortion, microcalcific grouping, or worrisome skin changes seen mammographically on either side. No mammographically suspicious finding. Sonographic findings: Focused targeted ultrasound was performed bilaterally. In the right breast at 12 oclock 5 to 6 cm from the nipple, there is a 2.0 x 2.0 x 0.9 cm very slightly hyperechoic lobule of fat containing a small cystic area immediately beneath the dermis. This has a benign appearance and may be a slightly inflamed fat nodule with a cyst. No other sonographically suspicious finding. In the left breast at the 11 oclock position superiorly and medially, there are isoechoic lobules of normal appearing subcutaneous fat and breast tissue. No sonographically suspicious feature. IMPRESSION: BI-RADS category 2, benign findings. Clinical follow up is advised. This mammogram was read with the aid of an FDA approved computer assisted detection system. Patient letter is letter M2. The patient states her last clinical breast exam is December 2019. The patient's [facility] lifetime breast cancer risk assessment is 10.8%. MTDD
== END ==
LOC: M WHC 07:58
PROVIDERS: ATTEND Nurse Practitioner Family
DX: Z12.31 Encounter for screening mammogram for malignant neoplasm of breast (principal); R92.8 Other abnormal and inconclusive findings on diagnostic imaging of breast

== ENCOUNTER → 2020-09-08 | Outpatient (CLI) | payer BC ==
[~2020-09-08] MED LIST changes: +ACET32TAB PO; -NON-325T5 PO
[2020-09-08 14:01] LABS: BASO # 0.1 10^3/uL (0.0-0.2); BASO % 1.2 % (0.0-1.0); EOS # 0.1 10^3/uL (0.0-0.5); EOS % 1.4 % (0.0-3.0); HEMATOCRIT 44.4 % (36.0-47.0); HEMOGLOBIN 14.2 g/dl (12.0-15.5); LYMPH # 1.4 10^3/uL (1.5-5.0); LYMPH % 27.2 % (24.0-44.0); MEAN CORPUSCULAR HEMOGLOBIN 29.3 pg (27.0-33.0); MEAN CORPUSCULAR VOLUME 91.5 fl (80.0-96.0); MONO # 0.5 10^3/uL (0.0-0.8); MONO % 9.5 % (2.0-8.0); NEUTROPHILS # 3.1 10^3/uL (1.5-8.5); NEUTROPHILS % 60.3 % (36.0-66.0); PLATELET COUNT, AUTOMATED 204 10^3/uL (150-450); RED BLOOD COUNT 4.85 10^6/uL (4.00-5.40); WHITE BLOOD COUNT 5.1 10^3/uL (4.0-10.0)
[2020-09-08 14:25] LABS: ALBUMIN 3.9 GM/DL (3.2-5.2); ALT/SGPT 32 U/L (12-78); BILIRUBIN,TOTAL 0.4 MG/DL (0.2-1.0); BLOOD UREA NITROGEN 11 MG/DL (7-18); CALCIUM LEVEL 9.1 MG/DL (8.5-10.1); CARBON DIOXIDE LEVEL 27 MEQ/L (21-32); CHLORIDE LEVEL 110 MEQ/L (98-107); CHOLESTEROL LEVEL 208 MG/DL (<200); CHOLESTEROL RISK RATIO 3.014 (<5); CREATININE FOR GFR 0.71 MG/DL (0.55-1.30); FREE T4 1.05 NG/DL (0.76-1.46); GLOMERULAR FILTRATION RATE > 60.0 (>58); GLUCOSE, FASTING 102 MG/DL (70-100); HDL CHOLESTEROL 69 MG/DL (>40); LDL CHOLESTEROL 118 MG/DL (<100); NON-HDL-C 139 MG/DL; POTASSIUM SERUM 4.2 MEQ/L (3.5-5.1); SODIUM LEVEL 142 MEQ/L (136-145); TOTAL PROTEIN 7.3 GM/DL (6.4-8.2); TRIGLYCERIDES LEVEL 106 MG/DL (<150)
[2020-09-08 14:28] LABS: MALB URINE SIEMENS 8.9 MG/L
[2020-09-08 14:44] LABS: HEMOGLOBIN A1c 5.4 %
== END ==
LOC: M WUC 11:27
PROVIDERS: ATTEND Nurse Practitioner Family
DX: Z00.00 Encounter for general adult medical examination without abnormal findings (principal); R63.2 Polyphagia; R03.0 Elevated blood-pressure reading, without diagnosis of hypertension

== ENCOUNTER → 2021-07-12 | Outpatient (CLI) | payer BC | LOC: M WHC 11:47 | PROVIDERS: ATTEND Nurse Practitioner Family | DX: Z12.31 Encounter for screening mammogram for malignant neoplasm of breast (principal) ==

== ENCOUNTER → 2021-12-05 | Outpatient (CLI) | payer BC | LOC: M SOG 08:23 | PROVIDERS: ATTEND Orthopaedic Surgery | DX: M54.2 Cervicalgia (principal); M54.50 Low back pain, unspecified; M25.78 Osteophyte, vertebrae ==

== ENCOUNTER 2022-04-24 14:42 | Emergency (ER) | payer BC ==
[~2022-04-24] VITALS: Ht 157.5 cm; Wt 91.8 kg
[2022-04-24 16:39] LABS: HEMATOCRIT 37.5 % (36.0-47.0); MEAN CORPUSCULAR HEMOGLOBIN 29.3 pg (27.0-33.0); MEAN CORPUSCULAR VOLUME 91.5 fl (80.0-96.0); PLATELET COUNT, AUTOMATED 194 10^3/uL (150-450); WHITE BLOOD COUNT 5.9 10^3/uL (4.0-10.0)
[2022-04-24 17:05] LABS: BLOOD UREA NITROGEN 18 MG/DL (9-23); CALCIUM LEVEL 9.1 MG/DL (8.5-10.1); CARBON DIOXIDE LEVEL 23 MMOL/L (20-31); CHLORIDE LEVEL 106 MMOL/L (98-107); CREATININE FOR GFR 0.71 MG/DL (0.55-1.30); GLOMERULAR FILTRATION RATE > 60.0 (>51); GLUCOSE, FASTING 137 MG/DL (60-100); POTASSIUM SERUM 4.4 MMOL/L (3.5-5.1); SODIUM LEVEL 140 MMOL/L (136-145)
[2022-04-24 17:12] LABS: THYROID STIMULATING HORMONE 0.946 uIU/ML (0.55-4.78)
[2022-04-24 17:15] VITALS: BP 121/77
[2022-04-24] MEDS ORDERED: CARVedilol 6.25 MG TAB PO ONE (17:20)
[2022-04-24] MEDS ORDERED: LISI10TA22 (17:21)
[2022-04-24] MEDS ORDERED: CORE6.25 PO (17:23)
[2022-04-24 17:33] VITALS: BP 116/72
== END 2022-04-24 17:37 | disposition home or self-care (01) ==
LOC: M ED 14:42
DX: I49.3 Ventricular premature depolarization (principal); I10 Essential (primary) hypertension; F41.9 Anxiety disorder, unspecified; F32.A Depression, unspecified; F10.10 Alcohol abuse, uncomplicated; Z87.891 Personal history of nicotine dependence; Z88.5 Allergy status to narcotic agent; Z79.52 Long term (current) use of systemic steroids; Z79.899 Other long term (current) drug therapy

== ENCOUNTER → 2022-05-18 | Outpatient (CLI) | payer BC ==
[~2022-05-18] MED LIST changes: +CORE6.25 PO; +LISI10TA22
[2022-05-18 21:34] LABS: HEMOGLOBIN A1c 5.2 % (4.0-6.0)
== END ==
LOC: M LAB 16:24
PROVIDERS: ATTEND Surgery
DX: Z86.39 Personal history of other endocrine, nutritional and metabolic disease (principal)

== ENCOUNTER → 2022-06-06 | Outpatient (REF) | payer BC | LOC: M LAB REF 15:11 | PROVIDERS: ATTEND Surgery | DX: K21.9 Gastro-esophageal reflux disease without esophagitis (principal) ==

== ENCOUNTER → 2022-07-25 | Outpatient (CLI) | payer BC ==
[2022-07-25 15:20] LABS: BASO % 0.7 % (0.0-1.0); EOS % 0.9 % (0.0-3.0); HEMATOCRIT 42.9 % (36.0-47.0); HEMOGLOBIN 13.7 g/dl (12.0-15.5); LYMPH # 1.2 10^3/uL (1.5-5.0); LYMPH % 27.6 % (24.0-44.0); MEAN CORPUSCULAR HEMOGLOBIN 28.8 pg (27.0-33.0); MEAN CORPUSCULAR HGB CONC 31.9 g/dl (32.0-36.5); MEAN CORPUSCULAR VOLUME 90.1 fl (80.0-96.0); MONO # 0.3 10^3/uL (0.0-0.8); MONO % 7.9 % (2.0-8.0); NEUTROPHILS # 2.7 10^3/uL (1.5-8.5); NEUTROPHILS % 62.7 % (36.0-66.0); PLATELET COUNT, AUTOMATED 148 10^3/uL (150-450); RED BLOOD COUNT 4.76 10^6/uL (4.00-5.40); WHITE BLOOD COUNT 4.3 10^3/uL (4.0-10.0)
[2022-07-25 15:49] LABS: ALKALINE PHOSPHATASE 71 U/L (46-116); ALT/SGPT 28 U/L (7.0-40); AST/SGOT 31 U/L (<34); BILIRUBIN,TOTAL 0.3 MG/DL (0.3-1.2); BLOOD UREA NITROGEN 12 MG/DL (9-23); CALCIUM LEVEL 8.9 MG/DL (8.5-10.1); CARBON DIOXIDE LEVEL 22 MMOL/L (20-31); CHLORIDE LEVEL 107 MMOL/L (98-107); CREATININE FOR GFR 0.63 MG/DL (0.55-1.30); GLOMERULAR FILTRATION RATE > 60.0 (>51); GLUCOSE, FASTING 82 MG/DL (60-100); IRON (FE) 41 UG/DL (50-170); MAGNESIUM LEVEL 1.7 MG/DL (1.8-2.4); PHOSPHORUS LEVEL 3.4 MG/DL (2.5-4.9); POTASSIUM SERUM 4.1 MMOL/L (3.5-5.1); SODIUM LEVEL 139 MMOL/L (136-145); TOTAL IRON BINDING CAPACITY 257 UG/DL (250-425); TOTAL PROTEIN 6.8 G/DL (5.7-8.2)
[2022-07-25 15:51] LABS: TOTAL 25(OH) VITAMIN D 38.8 NG/ML (20.0-100.0); VITAMIN B12 LEVEL 1577 PG/ML (211-911)
[2022-07-25 16:15] LABS: HEMOGLOBIN A1c 5.3 % (4.0-6.0)
== END ==
LOC: M LAB 14:00
PROVIDERS: ATTEND Surgery
DX: K91.2 Postsurgical malabsorption, not elsewhere classified (principal); E55.9 Vitamin D deficiency, unspecified; Z98.84 Bariatric surgery status

== ENCOUNTER → 2022-08-28 | Outpatient (CLI) | payer BC ==
[2022-08-28 16:35] LABS: HEPATITIS B SURFACE ANTIGEN NEGATIVE (NEGATIVE)
[2022-08-28 16:47] LABS: HIV 1&2 SCREEN NEGATIVE (NEGATIVE)
[2022-08-28 16:55] LABS: HEPATITIS B CORE ANTIBODY IGM NEGATIVE (NEGATIVE)
[2022-08-28 19:08] LABS: GC DNA AMPLIFICATION NEGATIVE (NEGATIVE)
== END ==
LOC: M PLALAB 13:47
PROVIDERS: ATTEND Nurse Practitioner Family
DX: Z11.3 Encounter for screening for infections with a predominantly sexual mode of transmission (principal); Z12.4 Encounter for screening for malignant neoplasm of cervix

== ENCOUNTER → 2022-09-04 | Outpatient (REF) | payer BC ==
[2022-09-04 18:05] LABS: BASO % 0.6 % (0.0-1.0); EOS # 0.1 10^3/uL (0.0-0.5); HEMATOCRIT 43.7 % (36.0-47.0); LYMPH # 1.3 10^3/uL (1.5-5.0); LYMPH % 25.8 % (24.0-44.0); MEAN CORPUSCULAR HEMOGLOBIN 28.9 pg (27.0-33.0); MEAN CORPUSCULAR VOLUME 90.3 fl (80.0-96.0); MONO # 0.5 10^3/uL (0.0-0.8); MONO % 9.3 % (2.0-8.0); NEUTROPHILS # 3.2 10^3/uL (1.5-8.5); NEUTROPHILS % 63.3 % (36.0-66.0); PLATELET COUNT, AUTOMATED 180 10^3/uL (150-450); RED BLOOD COUNT 4.84 10^6/uL (4.00-5.40); WHITE BLOOD COUNT 5.1 10^3/uL (4.0-10.0)
[2022-09-04 18:12] LABS: ALBUMIN 3.9 G/DL (3.2-5.2); ALKALINE PHOSPHATASE 95 U/L (46-116); ALT/SGPT 39 U/L (7.0-40); AST/SGOT 25 U/L (<34); BILIRUBIN,TOTAL 0.3 MG/DL (0.3-1.2); BLOOD UREA NITROGEN 17 MG/DL (9-23); CALCIUM LEVEL 9.2 MG/DL (8.5-10.1); CARBON DIOXIDE LEVEL 24 MMOL/L (20-31); CHLORIDE LEVEL 106 MMOL/L (98-107); GLOMERULAR FILTRATION RATE > 60.0 (>51); GLUCOSE, FASTING 115 MG/DL (60-100); MAGNESIUM LEVEL 1.8 MG/DL (1.8-2.4); POTASSIUM SERUM 3.6 MMOL/L (3.5-5.1); SODIUM LEVEL 141 MMOL/L (136-145); TOTAL PROTEIN 6.9 G/DL (5.7-8.2)
== END ==
LOC: M LAB REF 16:58
PROVIDERS: ATTEND Nurse Practitioner Family
DX: Z98.84 Bariatric surgery status (principal)

== ENCOUNTER → 2022-09-28 | Outpatient (CLI) | payer BC | LOC: M WHC 12:58 | PROVIDERS: ATTEND Nurse Practitioner Family | DX: Z12.31 Encounter for screening mammogram for malignant neoplasm of breast (principal) ==

== ENCOUNTER → 2023-08-30 | Outpatient (REF) | payer BC ==
[2023-08-30 14:25] LABS: HEMATOCRIT 42.3 % (36.0-47.0); HEMOGLOBIN 13.6 g/dl (12.0-15.5); LYMPH # 1.4 10^3/uL (1.5-5.0); LYMPH % 36.3 % (24.0-44.0); MEAN CORPUSCULAR HEMOGLOBIN 29.8 pg (27.0-33.0); MEAN CORPUSCULAR HGB CONC 32.2 g/dl (32.0-36.5); MEAN CORPUSCULAR VOLUME 92.6 fl (80.0-96.0); MONO # 0.3 10^3/uL (0.0-0.8); MONO % 7.9 % (2.0-8.0); NEUTROPHILS # 2.1 10^3/uL (1.5-8.5); NEUTROPHILS % 53.5 % (36.0-66.0); PLATELET COUNT, AUTOMATED 187 10^3/uL (150-450); RED BLOOD COUNT 4.57 10^6/uL (4.00-5.40); WHITE BLOOD COUNT 3.9 10^3/uL (4.0-10.0)
[2023-08-30 15:03] LABS: HEMOGLOBIN A1c 5.1 % (4.0-6.0)
[2023-08-30 15:20] LABS: IRON (FE) 94 UG/DL (50-170); PERCENT SATURATION 29.3 % (13.2-45.0); TOTAL IRON BINDING CAPACITY 321 UG/DL (250-425)
[2023-08-30 15:21] LABS: ALBUMIN 3.9 G/DL (3.2-5.2); ALKALINE PHOSPHATASE 79 U/L (46-116); ALT/SGPT 35 U/L (7.0-40); AST/SGOT 24 U/L (<34); BILIRUBIN,TOTAL 0.4 MG/DL (0.3-1.2); BLOOD UREA NITROGEN 13 MG/DL (9-23); CALCIUM LEVEL 9.2 MG/DL (8.5-10.1); CARBON DIOXIDE LEVEL 27 MMOL/L (20-31); CHLORIDE LEVEL 103 MMOL/L (98-107); CHOLESTEROL LEVEL 178 MG/DL (<200); CHOLESTEROL RISK RATIO 2.68 (<5); CREATININE FOR GFR 0.68 MG/DL (0.55-1.30); GLOMERULAR FILTRATION RATE > 60.0 (>51); GLUCOSE, FASTING 84 MG/DL (60-100); HDL CHOLESTEROL 66.4 MG/DL (>40); LDL CHOLESTEROL 89.8 MG/DL (<100); NON-HDL-C 111.6 MG/DL; PHOSPHORUS LEVEL 4.1 MG/DL (2.5-4.9); POTASSIUM SERUM 4.3 MMOL/L (3.5-5.1); SODIUM LEVEL 139 MMOL/L (136-145); TOTAL PROTEIN 6.7 G/DL (5.7-8.2); TRIGLYCERIDES LEVEL 109 MG/DL (<150)
[2023-08-30 15:22] LABS: FERRITIN 99.7 NG/ML (7.3-270.7); THYROID STIMULATING HORMONE 1.205 uIU/ML (0.55-4.78)
[2023-08-30 15:23] LABS: TOTAL 25(OH) VITAMIN D 45.5 NG/ML (20.0-100.0)
[2023-08-30 15:25] LABS: VITAMIN B12 LEVEL 787 PG/ML (211-911)
[2023-08-30 15:31] LABS: FOLATE > 24.0 NG/ML (>5.4)
== END ==
LOC: M LAB REF 12:20
PROVIDERS: ATTEND Nurse Practitioner Family
DX: Z98.84 Bariatric surgery status (principal); E55.9 Vitamin D deficiency, unspecified; E66.3 Overweight; Z13.220 Encounter for screening for lipoid disorders

== ENCOUNTER → 2023-10-04 | Outpatient (CLI) | payer BC, SELFPAY | LOC: M WHC 12:20 | PROVIDERS: ATTEND Nurse Practitioner Family | DX: Z12.31 Encounter for screening mammogram for malignant neoplasm of breast (principal) ==

== ENCOUNTER → 2023-11-05 | Outpatient (CLI) | payer BC | LOC: M WUC 14:49 | PROVIDERS: ATTEND Nurse Practitioner Family | DX: M79.672 Pain in left foot (principal) ==

== ENCOUNTER → 2024-02-25 | Outpatient (CLI) | payer BC | LOC: M SOG 07:55 | PROVIDERS: ATTEND Orthopaedic Surgery | DX: M47.812 Spondylosis without myelopathy or radiculopathy, cervical region (principal) ==

== ENCOUNTER → 2024-08-13 | Outpatient (REF) | payer BC ==
[2024-08-13 18:51] LABS: BASO % 0.8 % (0.0-1.0); EOS # 0.1 10^3/uL (0.0-0.5); EOS % 1.6 % (0.0-3.0); HEMATOCRIT 44.6 % (36.0-47.0); HEMOGLOBIN 14.4 g/dl (12.0-15.5); LYMPH # 1.8 10^3/uL (1.5-5.0); LYMPH % 36.6 % (24.0-44.0); MEAN CORPUSCULAR HEMOGLOBIN 29.7 pg (27.0-33.0); MEAN CORPUSCULAR HGB CONC 32.3 g/dl (32.0-36.5); MONO # 0.5 10^3/uL (0.0-0.8); MONO % 9.3 % (2.0-8.0); NEUTROPHILS # 2.6 10^3/uL (1.5-8.5); NEUTROPHILS % 51.5 % (36.0-66.0); PLATELET COUNT, AUTOMATED 215 10^3/uL (150-450); RED BLOOD COUNT 4.85 10^6/uL (4.00-5.40)
[2024-08-13 19:17] LABS: HEMOGLOBIN A1c 5.3 % (4.0-6.0)
[2024-08-13 19:26] LABS: ALBUMIN 4.2 G/DL (3.2-5.2); ALKALINE PHOSPHATASE 91 U/L (35-104); ALT/SGPT 50 U/L (7.0-40); AST/SGOT 27 U/L (<34); BILIRUBIN,TOTAL 0.2 MG/DL (0.3-1.2); BLOOD UREA NITROGEN 15 MG/DL (9-23); C REACTIVE PROTEIN QUANTITATIV < 0.50 MG/DL (<1.0); CALCIUM LEVEL 9.7 MG/DL (8.5-10.1); CARBON DIOXIDE LEVEL 28 MMOL/L (20-31); CHLORIDE LEVEL 106 MMOL/L (98-107); CHOLESTEROL LEVEL 197 MG/DL (<200); CHOLESTEROL RISK RATIO 2.64 (<5); GLOMERULAR FILTRATION RATE > 90.0 (>51); GLUCOSE, FASTING 78 MG/DL (60-100); HDL CHOLESTEROL 74.4 MG/DL (>40); IRON (FE) 104 UG/DL (50-170); NON-HDL-C 122.6 MG/DL; PERCENT SATURATION 29.5 % (13.2-45.0); POTASSIUM SERUM 4.7 MMOL/L (3.5-5.1); SODIUM LEVEL 144 MMOL/L (136-145); THYROID STIMULATING HORMONE 1.324 uIU/ML (0.55-4.78); TOTAL IRON BINDING CAPACITY 353 UG/DL (250-425); TOTAL PROTEIN 7.3 G/DL (5.7-8.2); TRIGLYCERIDES LEVEL 173 MG/DL (<150)
[2024-08-13 19:27] LABS: RHEUMATOID FACTOR QUANT < 3.5 IU/ML (<14)
[2024-08-13 19:28] LABS: FOLATE > 24.0 NG/ML (>5.4); VITAMIN B12 LEVEL 1840 PG/ML (211-911)
[2024-08-13 20:00] LABS: ERYTHROCYTE SEDIMENTATION RATE 20 mm/hr (0-30)
== END ==
LOC: M LAB REF 17:44
PROVIDERS: ATTEND Nurse Practitioner Family
DX: R52 Pain, unspecified (principal); E66.3 Overweight

== ENCOUNTER → 2024-11-06 | Outpatient (CLI) | payer BC | LOC: M WHC 12:50 | PROVIDERS: ATTEND Physician Assistant | DX: Z12.31 Encounter for screening mammogram for malignant neoplasm of breast (principal) ==

== ENCOUNTER 2024-12-19 18:27 | Emergency (ER) | payer BC ==
[~2024-12-19] VITALS: Ht 162.6 cm; Wt 75.1 kg
[2024-12-19 22:07] VITALS: BP 124/66; TEMP 98.1; O2SAT 99
== END 2024-12-19 22:07 | disposition home or self-care (01) ==
LOC: M ED 18:27
DX: M25.562 Pain in left knee (principal); S83.242A Other tear of medial meniscus, current injury, left knee, initial encounter; X50.0XXA Overexertion from strenuous movement or load, initial encounter; M25.462 Effusion, left knee; F41.9 Anxiety disorder, unspecified; F32.A Depression, unspecified; M54.50 Low back pain, unspecified; R51.9 Headache, unspecified; Z88.8 Allergy status to other drugs, medicaments and biological substances; Z79.899 Other long term (current) drug therapy; Y92.009 Unspecified place in unspecified non-institutional (private) residence as the place of occurrence of the external cause; Y93.89 Activity, other specified; Y99.9 Unspecified external cause status

== ENCOUNTER → 2025-01-26 | Outpatient (CLI) | payer BC | LOC: M RAD 07:50 | PROVIDERS: ATTEND Neuromusculoskeletal Medicine, Sports Medicine | DX: S83.242A Other tear of medial meniscus, current injury, left knee, initial encounter (principal); W18.30XA Fall on same level, unspecified, initial encounter; Y92.009 Unspecified place in unspecified non-institutional (private) residence as the place of occurrence of the external cause ==

== ENCOUNTER → 2025-02-04 | Outpatient (REF) | payer BC | LOC: M SFHCWAGY 12:49 | PROVIDERS: ATTEND Nurse Practitioner Family | DX: N73.9 Female pelvic inflammatory disease, unspecified (principal) ==

== ENCOUNTER → 2025-02-18 | Outpatient (CLI) | payer BC ==
[~2025-02-18] MED LIST changes: +CALC600C3 PO; +DULO1CAP5 PO; +PROBCAP14 PO; +THERTAB52 PO
== END ==
LOC: M EKG 12:35
PROVIDERS: ATTEND Anesthesiology
DX: Z01.818 Encounter for other preprocedural examination (principal); R94.31 Abnormal electrocardiogram [ECG] [EKG]

== ENCOUNTER 2025-03-06 08:05 | Day surgery (SDC) | payer BC ==
[~2025-03-06] VITALS: Ht 162.6 cm; Wt 75.1 kg
[2025-03-06] MEDS ORDERED: LIDOCAINE 2% 100 MG/5 ML SDV (FOR ANES.) As Ordered ONE (08:09)
[2025-03-06] MEDS ORDERED: dexAMETHasone 4 MG/ML 1 ML VIAL As Ordered ONE (08:09)
[2025-03-06] MEDS ORDERED: MIDAZOLAM INJ 2 MG/2 ML VIAL As Ordered ONE (08:09)
[2025-03-06] MEDS ORDERED: ONDANSETRON 4MG/2ML VIAL As Ordered ONE (08:09)
[2025-03-06] MEDS ORDERED: LR 1,000 ML IV SCH (08:25)
[2025-03-06] MEDS ORDERED: ACETAMINOPHEN 1000MG/100ML IV BAG As Ordered ONE (09:01)
[2025-03-06] MEDS: SCOPOLAMINE 1MG TRANSDERMAL PATCH TOP SCH (10:17)
[2025-03-06] MEDS ORDERED: PHENYLephrine 500MCG 5ML (100MCG/ML) SYRINGE As Ordered ONE (11:34)
[2025-03-06] MEDS: LIDOCAINE W/EPINEPHrine 1% 20 ML VIAL As Ordered ONE (11:59)
[2025-03-06] MEDS: MORPHINE 10 MG/ML 1 ML VIAL As Ordered ONE (12:23)
[2025-03-06] MEDS ORDERED: MORPHINE 2 MG/ML 1 ML VIAL IV PRN (12:30)
[2025-03-06] MEDS: HYDROMORPHONE HCL 0.5 MG/0.5 ML SYRINGE IV PRN (12:46)
[2025-03-06] MEDS: ONDANSETRON 4MG/2ML VIAL IV PRN (12:56)
[2025-03-06 14:11] VITALS: BP 121/68; TEMP 98; O2SAT 97
== END 2025-03-06 14:13 | disposition home or self-care (01) ==
LOC: M SDC 08:05
PROVIDERS: ATTEND Neuromusculoskeletal Medicine, Sports Medicine
DX: S83.232A Complex tear of medial meniscus, current injury, left knee, initial encounter (principal); M65.962 Unspecified synovitis and tenosynovitis, left lower leg; M17.12 Unilateral primary osteoarthritis, left knee; X58.XXXA Exposure to other specified factors, initial encounter; M23.42 Loose body in knee, left knee; Y93.9 Activity, unspecified; Y92.9 Unspecified place or not applicable; F41.9 Anxiety disorder, unspecified; F32.A Depression, unspecified; Z98.84 Bariatric surgery status; Z79.899 Other long term (current) drug therapy; Z88.8 Allergy status to other drugs, medicaments and biological substances
CPT/HCPCS: 29881; J0131; J0665; J0688; J1100; J1171; J2250; J2371; J2405; J2765; J3010

== ENCOUNTER → 2025-03-16 | Outpatient (CLI) | payer BC | LOC: M SOG 10:21 | PROVIDERS: ATTEND Physician Assistant | DX: M25.562 Pain in left knee (principal) ==